=== PATIENT | female | born 1940 | race Caucasian/White ===

== ENCOUNTER 2018-06-18 04:54 | Inpatient (IN) | payer MEDICARE | END 2018-06-20 17:32 | disposition home or self-care (01) | LOC: ER 04:54 → ED HOLD 07:32 → SUR 3N 13:27 | DX: J18.1 Lobar pneumonia, unspecified organism (principal); D68.61 Antiphospholipid syndrome; I11.0 Hypertensive heart disease with heart failure; I50.9 Heart failure, unspecified; D63.8 Anemia in other chronic diseases classified elsewhere ==

== ENCOUNTER 2019-02-07 09:56 | Inpatient (IN) | payer MEDICARE ==
[~2019-02-07] VITALS: Ht 157.5 cm; Wt 85.0 kg
[~2019-02-07 09:56] MED LIST: ACYC-202 PO; ALBU8.5H8 INH; BENZ-16 PO; CARV3.12 PO; COU5T PO; FURO-150 PO; IRBE150T51 PO; LACT1CAP26 PO; LEVO500T89 PO; OMEP20CA11 PO
[2019-02-07 11:18] LABS: BASOPHILS % (AUTO) 0.7 % (0-1); EOSINOPHILS % (AUTO) 0.7 % (0-6); HEMATOCRIT 27.1 % (35.0-45.0); HEMOGLOBIN 8.7 g/dl (12.0-16.0); LYMPHOCYTES # (AUTO) 0.6 X10'3 (1.1-4.8); LYMPHOCYTES % (AUTO) 11.2 % (21-51); MEAN CORPUSCULAR HEMOGLOBIN 24.8 PG (27.0-31.0); MEAN CORPUSCULAR HGB CONC 32.1 g/dL (33.0-36.5); MEAN CORPUSCULAR VOLUME 77.1 FL (78-98); MEAN PLATELET VOLUME 7.1 FL (7.4-10.4); MONOCYTES # (AUTO) 0.3 X10'3 (0-0.9); MONOCYTES % (AUTO) 6.1 % (2-12); NEUTROPHILS # (AUTO) 4.7 X10'3 (1.8-7.7); NEUTROPHILS % (AUTO) 81.3 % (42-75); PLATELET COUNT 190 X10'3 (140-440); RED BLOOD COUNT 3.52 X10'6 (4.20-5.60); RED CELL DISTRIBUTION WIDTH 20.2 % (11.5-14.5); WHITE BLOOD COUNT 5.7 X10'3 (4.5-11.0)
[2019-02-07 11:30] LABS: PARTIAL THROMBOPLASTIN TIME 33 SECONDS (22-32)
[2019-02-07 11:31] LABS: ALANINE AMINOTRANSFERASE 15 U/L (12-78); ALBUMIN 2.9 G/DL (3.4-5.0); ALBUMIN/GLOBULIN RATIO 0.7 (1.1-1.5); ALKALINE PHOSPHATASE 81 IU/L (46-116); ANION GAP 5 (8-16); ASPARTATE AMINO TRANSFERASE 22 U/L (10-37); BILIRUBIN,TOTAL 0.5 MG/DL (0.1-1.0); BLOOD UREA NITROGEN 13 MG/DL (7-18); BUN/CREATININE RATIO 13.4 (6.6-38.0); CHLORIDE 101 MMOL/L (99-107); CREATININE 0.97 MG/DL (0.40-0.90); GLUCOSE 104 MG/DL (70-104); POTASSIUM 3.8 MMOL/L (3.5-5.1); SODIUM 136 MMOL/L (135-145); TOTAL PROTEIN 7.2 G/DL (6.4-8.2); eGFR 55 ML/MIN
[2019-02-07 11:35] LABS: ANISOCYTOSIS 3+; ELLIPTOCYTES FEW; MICROCYTOSIS 1+; PLATELET ESTIMATE NORMAL; SCHISTOCYTES FEW; TEAR DROP CELLS FEW
[2019-02-07 11:35] LABS: ABG BASE EXCESS 3.6 mmol/L (-2.0-3.0); ABG HCO3 27.9 mmol/L (22.0-26.0); ABG OXYGEN SATURATION 85.3 % (95-98); ABG PCO2 (T) 41.2 mmHg (35.0-45.0); ABG PH (T) 7.449 (7.350-7.450); ABG PO2 (T) 53.5 mmHg (83-108); ALLEN'S TEST Positive; FCOHb 0.5 % (0.5-1.5); FMetHb 0.1 % (0.3-1.12); FO2Hb 84.8 % (94-100); RESPIRATORY RATE (OBSERVED) 20 b/min; TOTAL HEMOGLOBIN 9.7 G/dl (12.0-16.0)
--- NOTE | 2019-02-07 12:36 | NUR ---
pt has no c/o pain at this time. resting quietly. no sob, but does admit does have sob when ambulating
[2019-02-07] MEDS ORDERED: potassium Cl 20 mEq SR tablet PO PRN ×2 (14:05)
[2019-02-07] MEDS ORDERED: mag hydrox/Alum hydrox/simeth 30ml oral suspension PO PRN (14:05)
[2019-02-07] MEDS ORDERED: docusate sod 100mg capsule PO PRN (14:05)
[2019-02-07] MEDS ORDERED: HYDROcodone/acetaminophen 5mg/325mg tablet PO PRN (14:05)
[2019-02-07] MEDS ORDERED: magnesium Cl slow-release 64mg tablet PO PRN (14:05)
[2019-02-07] MEDS ORDERED: magnesium 4gm in 100ml NS 100 ML IV PRN (14:05)
[2019-02-07] MEDS ORDERED: potassium CL 10mEq/100ml bag 100 ML IV PRN ×2 (14:05)
[2019-02-07] MEDS ORDERED: acetaminophen 325mg tablet PO PRN (14:05)
[2019-02-07] MEDS ORDERED: magnesium 2GM in 50ml NS 50 ML IV PRN (14:05)
[2019-02-07] MEDS ORDERED: ondansetron/PF 4mg/2ml inj IV PRN (14:05)
[2019-02-07] MEDS ORDERED: HYDROcodone/acetaminophen 10/325mg tab PO PRN (14:05)
[2019-02-07] MEDS ORDERED: furosemide 20 MG/2 ML vial IV SCH (14:15)
--- NOTE | 2019-02-07 14:15 | NUR ---
pt up to bedside commode with increase sob.
[2019-02-07] MEDS ORDERED: WARF-55 PO (14:53)
[2019-02-07] MEDS ORDERED: OLME20TA14 PO (14:53)
[2019-02-07] MEDS ORDERED: CITA10TA9 PO (14:53)
[2019-02-07] MEDS ORDERED: ACYC400T PO (14:53)
[2019-02-07] MEDS ORDERED: BUME1TAB8 PO (14:53)
[2019-02-07] MEDS ORDERED: AMLO5TAB16 PO (14:53)
[2019-02-07] MEDS ORDERED: iohexol 350MG/ML 100ml bottle IV ONE (15:47)
--- NOTE | 2019-02-07 16:11 | NUR ---
PT BACK FROM CT SCAN IN STABLE CONDITION
[2019-02-07] MEDS: methylPREDNISolone sod succ/PF 40mg inj. IV SCH (16:44)
--- NOTE | 2019-02-07 17:14 | NUR ---
[facility] [phone]
[2019-02-07 17:38] VITALS: BP 156/75
[2019-02-07] MEDS: montelukast 10mg tablet PO SCH (18:46)
--- NOTE | 2019-02-07 18:53 | NUR ---
Problems reprioritized. Patient report given, questions answered & plan of care reviewed with Rosaline MCCAIN.
--- NOTE | 2019-02-07 19:20 | NUR ---
Doctor Misa up to see patient to discuss the echo findings. requesting records from Dr. Paniagua @[facility] for Dr. Ashton's request. Left note for medical unit secretary to het reports in the morning. Dr. Quintero to consult patient tomorrow.
[2019-02-07 20:00] VITALS: BP 146/68
[2019-02-07] MEDS ORDERED: doxycycline inj 100 MG in normal saline 100ml IV soln 100 ML IV SCH (20:00)
[2019-02-07] MEDS ORDERED: warfarin 5mg tablet PO ONE (21:00)
[2019-02-08] VITALS: BP 132/60
[2019-02-08] MEDS: methylPREDNISolone sod succ/PF 40mg inj. IV SCH (00:23)
[2019-02-08 05:11] LABS: BASOPHILS % (AUTO) 0 % (0-1); EOSINOPHILS % (AUTO) 0 % (0-6); HEMATOCRIT 27.2 % (35.0-45.0); HEMOGLOBIN 8.7 g/dl (12.0-16.0); LYMPHOCYTES # (AUTO) 0.4 X10'3 (1.1-4.8); LYMPHOCYTES % (AUTO) 7.6 % (21-51); MEAN CORPUSCULAR HEMOGLOBIN 24.8 PG (27.0-31.0); MEAN CORPUSCULAR HGB CONC 32.1 g/dL (33.0-36.5); MEAN CORPUSCULAR VOLUME 77.4 FL (78-98); MEAN PLATELET VOLUME 7.5 FL (7.4-10.4); MONOCYTES % (AUTO) 0.8 % (2-12); NEUTROPHILS # (AUTO) 4.8 X10'3 (1.8-7.7); NEUTROPHILS % (AUTO) 91.6 % (42-75); PLATELET COUNT 201 X10'3 (140-440); RED BLOOD COUNT 3.51 X10'6 (4.20-5.60); RED CELL DISTRIBUTION WIDTH 20.4 % (11.5-14.5); WHITE BLOOD COUNT 5.2 X10'3 (4.5-11.0)
[2019-02-08 05:27] LABS: ALANINE AMINOTRANSFERASE 12 U/L (12-78); ALBUMIN/GLOBULIN RATIO 0.7 (1.1-1.5); ALKALINE PHOSPHATASE 86 IU/L (46-116); ANION GAP 8 (8-16); ASPARTATE AMINO TRANSFERASE 16 U/L (10-37); BILIRUBIN,TOTAL 0.7 MG/DL (0.1-1.0); BLOOD UREA NITROGEN 14 MG/DL (7-18); BUN/CREATININE RATIO 16.7 (6.6-38.0); CALCIUM 9.1 MG/DL (8.5-10.1); CHLORIDE 101 MMOL/L (99-107); CHOL/HDL RATIO 2.8 (0.00-4.99); CHOLESTEROL 192 MG/DL (0-200); CREATININE 0.84 MG/DL (0.40-0.90); GLUCOSE 133 MG/DL (70-104); HDL CHOLESTEROL 69 MG/DL (35-60); LDL CHOLESTEROL 121 MG/DL (50-100); MAGNESIUM 1.9 MG/DL (1.5-2.4); POTASSIUM 4.1 MMOL/L (3.5-5.1); SODIUM 137 MMOL/L (135-145); TOTAL CARBON DIOXIDE 28.5 MMOL/L (24-32); TOTAL PROTEIN 7.4 G/DL (6.4-8.2); TRIGLYCERIDES 39 MG/DL (20-135); eGFR 65 ML/MIN
--- NOTE | 2019-02-08 06:46 | NUR ---
Patient in room [facility] 345. I have received report from KALYN Waggoner and had the opportunity to ask questions and assume patient care.
--- NOTE | 2019-02-08 06:55 | NUR ---
Patient in room [facility] 345. I have received report from KALYN Waggoner and had the opportunity to ask questions and assume patient care.
[2019-02-08 07:00] VITALS: BP 131/61
[2019-02-08 07:49] LABS: ANISOCYTOSIS 3+; HYPOCHROMASIA 1+; MICROCYTOSIS 1+; PLATELET ESTIMATE NORMAL
[2019-02-08] MEDS: K and/or MAG REPLACEMENT MC SCH (08:00)
[2019-02-08] MEDS: montelukast 10mg tablet PO SCH (08:10)
[2019-02-08 11:00] VITALS: BP 144/54
[2019-02-08] MEDS ORDERED: phytonadione inj. 5 MG in normal saline 100ml IV soln 99.5 ML IV STA (12:03)
--- NOTE | 2019-02-08 17:39 | NUR ---
Student documentation: I have reviewed and agree with all interventions, assessments performed and documented by Angélica, student RN.
--- NOTE | 2019-02-08 18:00 | NUR ---
Patient in room YMN[facility] 345. I have received report from Char MCCAIN and had the opportunity to ask questions and assume patient care.
--- NOTE | 2019-02-08 18:42 | NUR ---
Problems reprioritized. Patient report given, questions answered & plan of care reviewed with KALYN Shaikh.
[2019-02-08 20:00] VITALS: BP 144/66
[2019-02-08] MEDS ORDERED: warfarin 5mg tablet PO ONE (21:00)
[2019-02-09] VITALS (9 sets, daily range): BP systolic 123–156; BP diastolic 63–91
[2019-02-09 05:00] LABS: BASOPHILS % (AUTO) 0.2 % (0-1); EOSINOPHILS % (AUTO) 0.4 % (0-6); HEMATOCRIT 26.2 % (35.0-45.0); HEMOGLOBIN 8.4 g/dl (12.0-16.0); LYMPHOCYTES % (AUTO) 8.7 % (21-51); MEAN CORPUSCULAR HEMOGLOBIN 24.8 PG (27.0-31.0); MEAN CORPUSCULAR VOLUME 77.4 FL (78-98); MEAN PLATELET VOLUME 7.4 FL (7.4-10.4); MONOCYTES # (AUTO) 0.8 X10'3 (0-0.9); MONOCYTES % (AUTO) 6.8 % (2-12); NEUTROPHILS # (AUTO) 9.8 X10'3 (1.8-7.7); NEUTROPHILS % (AUTO) 83.9 % (42-75); PLATELET COUNT 211 X10'3 (140-440); RED BLOOD COUNT 3.38 X10'6 (4.20-5.60); WHITE BLOOD COUNT 11.7 X10'3 (4.5-11.0)
[2019-02-09 05:14] LABS: ALANINE AMINOTRANSFERASE 13 U/L (12-78); ALBUMIN 2.8 G/DL (3.4-5.0); ALBUMIN/GLOBULIN RATIO 0.7 (1.1-1.5); ALKALINE PHOSPHATASE 77 IU/L (46-116); ANION GAP 7 (8-16); ASPARTATE AMINO TRANSFERASE 18 U/L (10-37); BILIRUBIN,TOTAL 0.8 MG/DL (0.1-1.0); BLOOD UREA NITROGEN 18 MG/DL (7-18); BUN/CREATININE RATIO 18.9 (6.6-38.0); CALCIUM 9.2 MG/DL (8.5-10.1); CHLORIDE 99 MMOL/L (99-107); CREATININE 0.95 MG/DL (0.40-0.90); GLUCOSE 99 MG/DL (70-104); POTASSIUM 3.8 MMOL/L (3.5-5.1); SODIUM 136 MMOL/L (135-145); TOTAL CARBON DIOXIDE 29.7 MMOL/L (24-32); TOTAL PROTEIN 6.9 G/DL (6.4-8.2); eGFR 57 ML/MIN
--- NOTE | 2019-02-09 06:33 | NUR ---
Problems reprioritized. Patient report given, questions answered & plan of care reviewed with Kenzie MCCAIN.
[2019-02-09 06:40] LABS: ANISOCYTOSIS 3+; ELLIPTOCYTES FEW; HYPOCHROMASIA 1+; MICROCYTOSIS 1+; PLATELET ESTIMATE NORMAL; POLYCHROMASIA FEW; SCHISTOCYTES FEW; STOMATOCYTES FEW; TEAR DROP CELLS FEW
--- NOTE | 2019-02-09 06:42 | NUR ---
Patient in room [facility] 345. I have received report from Neel MCCAIN and had the opportunity to ask questions and assume patient care.
[2019-02-09] MEDS ORDERED: aminocaproic acid 250 MG/1 ML inj. ONE (08:00)
[2019-02-09] MEDS ORDERED: albumin (human) 25% 100 ML IV solution IV ONE (08:00)
[2019-02-09] MEDS ORDERED: potassium Cl 2 mEq/ml inj IV ONE (08:00)
[2019-02-09] MEDS: K and/or MAG REPLACEMENT MC SCH (08:00)
[2019-02-09] MEDS ORDERED: LIDOcaine 2% (20 mg/ml) 5ml cardiac syringe ONE (08:00)
[2019-02-09] MEDS ORDERED: phenylephrine 10mg/ml inj. ONE (08:00)
[2019-02-09] MEDS ORDERED: heparin 10,000 units/1 ML INJ ONE (08:00)
[2019-02-09] MEDS ORDERED: magnesium sulf 1 GM/2 ML ONE (08:00)
[2019-02-09] MEDS ORDERED: sodium bicarbonate (8.4%) 1 mEq/ml syringe ONE (08:00)
[2019-02-09] MEDS ORDERED: methylPREDNISolone sod. succ. 500mg inj ONE (08:00)
[2019-02-09] MEDS: montelukast 10mg tablet PO SCH (09:22)
[2019-02-09] MEDS: CefTRIAXone/D5W-Rocephin 1gm 50 ML IV SCH (12:02)
[2019-02-09] MEDS ORDERED: acetaminophen 325mg tablet PO ONE (15:50)
[2019-02-09] MEDS ORDERED: heparin 1,000unit/ml 10ml vial 10 ML ONE (16:02)
[2019-02-09] MEDS ORDERED: midazolam 2 mg/2 ml injection ONE (16:02)
[2019-02-09] MEDS ORDERED: nitroGLYCERIN-Tridil 50MG/D5W 250 ML IV ONE (16:02)
[2019-02-09] MEDS ORDERED: verapamil 2.5 mg/ml inj IV ONE (16:02)
[2019-02-09] MEDS ORDERED: fentaNYL/PF 50MCG/1 ML 2ML syringe ONE (16:02)
[2019-02-09] MEDS ORDERED: iohexol 350 MG/ML 50ML vial IV ONE (16:02)
[2019-02-09] MEDS ORDERED: LIDOcaine 1% (10mg/ml)w/preservative injection 20ml MDV ONE (16:02)
[2019-02-09] MEDS ORDERED: iohexol 350MG/ML 100ml bottle IV ONE (16:03)
[2019-02-09] MEDS ORDERED: furosemide 40mg/4ml inj IV ONE ×2 (16:05→16:10)
[2019-02-09] MEDS ORDERED: potassium Cl 20 mEq SR tablet PO STA (16:05)
--- NOTE | 2019-02-09 18:05 | NUR ---
Patient in room [facility] 345. I have received report from Kenzie MCCAIN and had the opportunity to ask questions and assume patient care.
[2019-02-09] MEDS ORDERED: enoxaparin 100mg/ml syringe SUBCUT ONE (19:50)
[2019-02-09] MEDS: furosemide 40mg/4ml inj IV SCH (20:20)
[2019-02-09] MEDS: lactobacillus rhamnosus 10,000 MMU CELLS/CAPSULE PO SCH (20:20)
[2019-02-10] VITALS (9 sets, daily range): BP systolic 121–150; BP diastolic 64–82
[2019-02-10 06:16] LABS: ALANINE AMINOTRANSFERASE 14 U/L (12-78); ALBUMIN 2.8 G/DL (3.4-5.0); ALBUMIN/GLOBULIN RATIO 0.7 (1.1-1.5); ALKALINE PHOSPHATASE 83 IU/L (46-116); ANION GAP 7 (8-16); ASPARTATE AMINO TRANSFERASE 18 U/L (10-37); BILIRUBIN,TOTAL 1.3 MG/DL (0.1-1.0); BLOOD UREA NITROGEN 18 MG/DL (7-18); BUN/CREATININE RATIO 20.5 (6.6-38.0); CALCIUM 9.1 MG/DL (8.5-10.1); CHLORIDE 98 MMOL/L (99-107); CREATININE 0.88 MG/DL (0.40-0.90); GLUCOSE 87 MG/DL (70-104); MAGNESIUM 1.9 MG/DL (1.5-2.4); POTASSIUM 3.6 MMOL/L (3.5-5.1); SODIUM 138 MMOL/L (135-145); TOTAL CARBON DIOXIDE 33.4 MMOL/L (24-32); TOTAL PROTEIN 7.1 G/DL (6.4-8.2); eGFR 62 ML/MIN
--- NOTE | 2019-02-10 06:20 | NUR ---
Problems reprioritized. Patient report given, questions answered & plan of care reviewed with Kenzie MCCAIN.
--- NOTE | 2019-02-10 06:45 | NUR ---
Patient in room [facility] 345. I have received report from Neel MCCAIN and had the opportunity to ask questions and assume patient care.
[2019-02-10] MEDS: CefTRIAXone/D5W-Rocephin 1gm 50 ML IV SCH (07:56)
[2019-02-10] MEDS: lactobacillus rhamnosus 10,000 MMU CELLS/CAPSULE PO SCH ×2 (07:56→19:39)
[2019-02-10] MEDS: potassium Cl 20 mEq SR tablet PO SCH ×2 (07:56→19:39)
[2019-02-10] MEDS: montelukast 10mg tablet PO SCH (07:56)
[2019-02-10] MEDS: K and/or MAG REPLACEMENT MC SCH (08:00)
[2019-02-10] MEDS: furosemide 40mg/4ml inj IV SCH ×2 (08:11→19:39)
[2019-02-10 09:16] LABS: BASOPHILS % (AUTO) 0.4 % (0-1); EOSINOPHILS # (AUTO) 0.1 X10'3 (0-0.9); EOSINOPHILS % (AUTO) 1.4 % (0-6); HEMATOCRIT 30.3 % (35.0-45.0); HEMOGLOBIN 9.8 g/dl (12.0-16.0); LYMPHOCYTES % (AUTO) 15.3 % (21-51); MEAN CORPUSCULAR HEMOGLOBIN 25.5 PG (27.0-31.0); MEAN CORPUSCULAR HGB CONC 32.2 g/dL (33.0-36.5); MONOCYTES # (AUTO) 0.4 X10'3 (0-0.9); MONOCYTES % (AUTO) 6.3 % (2-12); NEUTROPHILS # (AUTO) 5.1 X10'3 (1.8-7.7); NEUTROPHILS % (AUTO) 76.6 % (42-75); PLATELET COUNT 154 X10'3 (140-440); RED BLOOD COUNT 3.84 X10'6 (4.20-5.60); RED CELL DISTRIBUTION WIDTH 19.9 % (11.5-14.5); WHITE BLOOD COUNT 6.6 X10'3 (4.5-11.0)
[2019-02-10] MEDS ORDERED: LIDOcaine 1% (10mg/ml)w/preservative injection 20ml MDV ONE (09:50)
[2019-02-10] MEDS ORDERED: verapamil 2.5 mg/ml inj IV ONE (09:50)
[2019-02-10] MEDS ORDERED: fentaNYL/PF 50MCG/1 ML 2ML syringe ONE (09:50)
[2019-02-10] MEDS ORDERED: nitroGLYCERIN-Tridil 50MG/D5W 250 ML IV ONE (09:50)
[2019-02-10] MEDS ORDERED: iohexol 350MG/ML 100ml bottle IV ONE (09:50)
[2019-02-10] MEDS ORDERED: midazolam 2 mg/2 ml injection ONE ×2 (09:50→10:21)
[2019-02-10] MEDS ORDERED: iohexol 350 MG/ML 50ML vial IV ONE (09:50)
[2019-02-10] MEDS ORDERED: heparin 1,000unit/ml 10ml vial 10 ML ONE (09:50)
--- NOTE | 2019-02-10 10:00 | NUR ---
Pt going to flower shop laborer/designer to have a SABAS & Angio with Dr. Ashton. Pt NPO since Midnight.
[2019-02-10 10:28] LABS: ANISOCYTOSIS 2+; HYPOCHROMASIA 1+; MICROCYTOSIS 1+; PLATELET ESTIMATE NORMAL; POLYCHROMASIA FEW
[2019-02-10 10:29] LABS: ELLIPTOCYTES FEW; TEAR DROP CELLS FEW
--- NOTE | 2019-02-10 12:00 | NUR ---
Pt back from chemical laboratory scientist, R & L HC & SABAS. Monitoring Angio sites & Vitals. Dr Bynum notified.
--- NOTE | 2019-02-10 12:21 | NUR ---
received repport from Oscar in cath lab radiological technologist, pt is coming back to room. L & R cath & PEE no stents.
[2019-02-10 14:26] LABS: ISTAT HGB ART 10.5 g/dl (12.0-16.0); ISTAT Hct ART 31 %PCV (35-48); ISTAT O2 SATURATION ARTERIAL 95 % (95-98); ISTAT SOURCE ART
--- NOTE | 2019-02-10 14:35 | NUR ---
Pt on her back for 4 hrs, no bleeding, R, L & Addendum: 02/10/19 at 1848 by Kenzie Montgomery RN R & L AC dry and intact, groin dry and intact. Right radial pressure cuff released in increments of 2mm per 15 min. No bleeding, bruising or pain noted. Vitals good, pt comfortable.
--- NOTE | 2019-02-10 18:05 | NUR ---
Patient in room [facility] 345. I have received report from Kenzie MCCAIN and had the opportunity to ask questions and assume patient care.
--- NOTE | 2019-02-10 18:48 | NUR ---
Problems reprioritized. Patient report given, questions answered & plan of care reviewed with Neel MCCAIN.
[2019-02-11] VITALS (7 sets, daily range): BP systolic 93–151; BP diastolic 48–75
--- NOTE | 2019-02-11 06:21 | NUR ---
Problems reprioritized. Patient report given, questions answered & plan of care reviewed with Kenzie MCCAIN.
[2019-02-11 06:37] LABS: BASOPHILS % (AUTO) 0.5 % (0-1); EOSINOPHILS # (AUTO) 0.2 X10'3 (0-0.9); EOSINOPHILS % (AUTO) 2.3 % (0-6); HEMATOCRIT 31.4 % (35.0-45.0); HEMOGLOBIN 10.1 g/dl (12.0-16.0); LYMPHOCYTES # (AUTO) 0.8 X10'3 (1.1-4.8); MEAN CORPUSCULAR HEMOGLOBIN 25.5 PG (27.0-31.0); MEAN CORPUSCULAR HGB CONC 32.3 g/dL (33.0-36.5); MEAN PLATELET VOLUME 7.7 FL (7.4-10.4); MONOCYTES # (AUTO) 0.5 X10'3 (0-0.9); MONOCYTES % (AUTO) 6.8 % (2-12); NEUTROPHILS # (AUTO) 5.5 X10'3 (1.8-7.7); NEUTROPHILS % (AUTO) 79.4 % (42-75); PLATELET COUNT 182 X10'3 (140-440); RED BLOOD COUNT 3.97 X10'6 (4.20-5.60); RED CELL DISTRIBUTION WIDTH 19.6 % (11.5-14.5)
--- NOTE | 2019-02-11 06:40 | NUR ---
Patient in room [facility] 345. I have received report from Neel MCCAIN and had the opportunity to ask questions and assume patient care.
[2019-02-11 07:01] LABS: ALANINE AMINOTRANSFERASE 12 U/L (12-78); ALBUMIN 2.8 G/DL (3.4-5.0); ALBUMIN/GLOBULIN RATIO 0.6 (1.1-1.5); ALKALINE PHOSPHATASE 89 IU/L (46-116); ANION GAP 8 (8-16); ASPARTATE AMINO TRANSFERASE 14 U/L (10-37); BILIRUBIN,TOTAL 0.9 MG/DL (0.1-1.0); BLOOD UREA NITROGEN 18 MG/DL (7-18); CALCIUM 9.7 MG/DL (8.5-10.1); CHLORIDE 98 MMOL/L (99-107); GLUCOSE 89 MG/DL (70-104); MAGNESIUM 2.1 MG/DL (1.5-2.4); POTASSIUM 3.9 MMOL/L (3.5-5.1); SODIUM 137 MMOL/L (135-145); TOTAL CARBON DIOXIDE 30.7 MMOL/L (24-32); TOTAL PROTEIN 7.5 G/DL (6.4-8.2); eGFR 60 ML/MIN
[2019-02-11] MEDS ORDERED: enoxaparin 60mg/0.6ml syringe SUBCUT SCH ×2 (08:00→20:00)
[2019-02-11] MEDS: K and/or MAG REPLACEMENT MC SCH (08:00)
[2019-02-11] MEDS: CefTRIAXone/D5W-Rocephin 1gm 50 ML IV SCH (08:10)
[2019-02-11] MEDS: lactobacillus rhamnosus 10,000 MMU CELLS/CAPSULE PO SCH ×2 (08:11→21:27)
[2019-02-11] MEDS: potassium Cl 20 mEq SR tablet PO SCH ×2 (08:11→21:26)
[2019-02-11] MEDS: furosemide 40mg/4ml inj IV SCH ×2 (08:11→21:26)
[2019-02-11] MEDS: montelukast 10mg tablet PO SCH (08:11)
[2019-02-11 09:38] LABS: ANISOCYTOSIS 2+; PLATELET ESTIMATE NORMAL; TOTAL CELLS COUNTED 100
[2019-02-11 09:39] LABS: ELLIPTOCYTES FEW; HYPOCHROMASIA 1+; MICROCYTOSIS 1+; POLYCHROMASIA FEW; TEAR DROP CELLS FEW
[2019-02-11] MEDS ORDERED: magnesium 4gm in 100ml NS 100 ML IV PRN (12:20)
[2019-02-11] MEDS ORDERED: potassium Cl 20 mEq SR tablet PO PRN (12:20)
[2019-02-11] MEDS ORDERED: MALTODEXTRIN/FRUCTOSE 0.68 KCAL/ML LIQUID 296ML BOTTLE PO ONE (12:20)
[2019-02-11] MEDS ORDERED: dextrose 50%-water 50ml dispensing syringe IV PRN (12:20)
[2019-02-11] MEDS ORDERED: potassium Cl 20mEq/100mL bag 100 ML IV PRN (12:20)
[2019-02-11] MEDS ORDERED: magnesium 2GM in 50ml NS 50 ML IV PRN (12:20)
[2019-02-11] MEDS ORDERED: MESSAGE TO NURSING PO ONE ×2 (12:20→17:30)
[2019-02-11] MEDS: CITALOpram 10mg tablet PO SCH (12:58)
[2019-02-11] MEDS: carVEDilol 3.125mg tablet PO SCH ×2 (12:59→21:27)
--- NOTE | 2019-02-11 13:10 | NUR ---
Problems reprioritized. Patient report given, questions answered & plan of care reviewed with Thais MCCAIN in [facility] Unit.
--- NOTE | 2019-02-11 13:12 | NUR ---
Called Dr Maddox to informed him that pt and family had agreed on open heart surgery for tomorrow, he said he will arrange for all pre-op needs for pts.
--- NOTE | 2019-02-11 13:30 | NUR ---
PATIENT ARRIVED TO ACCE 316 ALERT, ORIENTED, CALM, PLEASANT AND COOPERATIVE WITH FAMILY AT BEDSIDE.
[2019-02-11] MEDS ORDERED: ringers solution, lacted 1,000 ML IV ONE (14:46)
--- NOTE | 2019-02-11 16:50 | NUR ---
KALYN LYONS, ATTEMPTED X3 TO OBTAIN A LEFT ARM IV ACCESS FOR PRE-OP USING THE ULTRASOUND MACHINE. HE WAS UNABLE TO GET AN IV. PATIENT HAS A 22G IN THE RIGHT WRIST. WILL LET SENIOR PREMIUM AUDITOR KNOW TO ENDORSE THIS INFO TO PRE-OP. PATIENT IS A DIFFICULT STICK.
[2019-02-11 17:21] LABS: ABG BASE EXCESS 4.9 mmol/L (-2.0-3.0); ABG HCO3 27.9 mmol/L (22.0-26.0); ABG OXYGEN SATURATION 93.9 % (95-98); ABG PCO2 (T) 35.5 mmHg (35.0-45.0); ABG PH (T) 7.514 (7.350-7.450); ABG PO2 (T) 68.6 mmHg (83-108); ALLEN'S TEST Positive; FMetHb 0.2 % (0.3-1.12); FO2Hb 93.7 % (94-100); TOTAL HEMOGLOBIN 10.9 G/dl (12.0-16.0)
--- NOTE | 2019-02-11 18:20 | NUR ---
Patient in room MED 316. I have received report from KALYN Gordon and had the opportunity to ask questions and assume patient care.
--- NOTE | 2019-02-11 18:29 | NUR ---
Problems reprioritized. Patient report given, questions answered & plan of care reviewed with KALYN Chauhan.
[2019-02-11] MEDS ORDERED: metoprolol tartrate 12.5mg (1/2 tablet) PO SCH (20:00)
[2019-02-11] MEDS: mupirocin 2% nasal ointment 1gm UD NS SCH (21:27)
[2019-02-12] VITALS (15 sets, daily range): BP systolic 104–155; BP diastolic 45–60
[2019-02-12] MEDS ORDERED: MESSAGE TO NURSING PO ONE ×3 (01:30→05:30)
[2019-02-12 04:54] LABS: BASOPHILS # (AUTO) 0.1 X10'3 (0-0.2); BASOPHILS % (AUTO) 0.7 % (0-1); EOSINOPHILS # (AUTO) 0.2 X10'3 (0-0.9); HEMOGLOBIN 10.2 g/dl (12.0-16.0); MEAN CORPUSCULAR HEMOGLOBIN 25.6 PG (27.0-31.0); MONOCYTES # (AUTO) 0.6 X10'3 (0-0.9); RED BLOOD COUNT 3.97 X10'6 (4.20-5.60); RED CELL DISTRIBUTION WIDTH 19.5 % (11.5-14.5)
[2019-02-12 04:56] LABS: EOSINOPHILS % (AUTO) 2.6 % (0-6); HEMATOCRIT 31.2 % (35.0-45.0); LYMPHOCYTES % (AUTO) 13.4 % (21-51); MEAN CORPUSCULAR HGB CONC 32.6 g/dL (33.0-36.5); MEAN CORPUSCULAR VOLUME 78.5 FL (78-98); MEAN PLATELET VOLUME 8.2 FL (7.4-10.4); MONOCYTES % (AUTO) 8.2 % (2-12); NEUTROPHILS # (AUTO) 5.6 X10'3 (1.8-7.7); NEUTROPHILS % (AUTO) 75.1 % (42-75); WHITE BLOOD COUNT 7.4 X10'3 (4.5-11.0)
[2019-02-12 05:07] LABS: ALANINE AMINOTRANSFERASE 9 U/L (12-78); ALBUMIN 2.7 G/DL (3.4-5.0); ALBUMIN/GLOBULIN RATIO 0.6 (1.1-1.5); ALKALINE PHOSPHATASE 83 IU/L (46-116); ANION GAP 7 (8-16); ASPARTATE AMINO TRANSFERASE 18 U/L (10-37); BILIRUBIN,TOTAL 0.5 MG/DL (0.1-1.0); BLOOD UREA NITROGEN 21 MG/DL (7-18); BUN/CREATININE RATIO 21.9 (6.6-38.0); CALCIUM 9.1 MG/DL (8.5-10.1); CHLORIDE 98 MMOL/L (99-107); CREATININE 0.96 MG/DL (0.40-0.90); GLUCOSE 110 MG/DL (70-104); MAGNESIUM 1.9 MG/DL (1.5-2.4); POTASSIUM 4.2 MMOL/L (3.5-5.1); SODIUM 132 MMOL/L (135-145); TOTAL CARBON DIOXIDE 26.9 MMOL/L (24-32); TOTAL PROTEIN 7.1 G/DL (6.4-8.2); eGFR 56 ML/MIN
[2019-02-12] MEDS ORDERED: ROPIVAcaine 0.5% (5mg/ml) 30ml vial ONE (05:11)
[2019-02-12] MEDS ORDERED: cefazolin/dext.iso 2gm/50ml 50 ML IV ONE (05:30)
[2019-02-12] MEDS ORDERED: gabapentin 400mg capsule PO ONE (05:30)
[2019-02-12] MEDS ORDERED: vancomycin/NS 1 GM ADD-VANTAGE 250 ML IV ONE (05:30)
[2019-02-12] MEDS ORDERED: insulin glargine (Lantus) pen - multi-dose SQ PRN (05:30)
[2019-02-12] MEDS ORDERED: MALTODEXTRIN/FRUCTOSE 0.68 KCAL/ML LIQUID 296ML BOTTLE PO ONE (05:30)
[2019-02-12] MEDS: mupirocin 2% nasal ointment 1gm UD NS SCH ×2 (05:40→20:57)
[2019-02-12] MEDS ORDERED: LORazepam 2 mg/ml vial IV ONE ×2 (06:00)
[2019-02-12] MEDS ORDERED: famotidine 20mg tablet PO ONE ×2 (06:00)
--- NOTE | 2019-02-12 06:15 | NUR ---
Patient in room MED 316. I have received report from KALYN Chauhan and had the opportunity to ask questions and assume patient care.
--- NOTE | 2019-02-12 06:25 | NUR ---
Problems reprioritized. Patient report given, questions answered & plan of care reviewed with KALYN Holbrook.
[2019-02-12] MEDS: carVEDilol 3.125mg tablet PO SCH (06:42)
--- NOTE | 2019-02-12 06:50 | NUR ---
Patient left the floor with the OR staff. Patient was alert and oriented and in stable condition.
[2019-02-12] MEDS ORDERED: MIDAZolam 5mg/5ml vial ONE (07:01)
[2019-02-12] MEDS ORDERED: SUFENTANIL CITRATE 50 MCG/ML 2ml ampule IV ONE (07:01)
[2019-02-12] MEDS ORDERED: etomidate 2mg/ml inj. ONE (07:30)
[2019-02-12] MEDS ORDERED: pancuronium br 1mg/ml inj IV ONE (07:30)
[2019-02-12 07:55] LABS: ABG BASE EXCESS -0.5 mmol/L (-2.0-3.0); ABG HCO3 24.1 mmol/L (22.0-26.0); ABG OXYGEN SATURATION 99.6 % (95-98); ABG PH 7.408 (7.350-7.450); ABG PO2 459.9 mmHg (60.0-100.0); CL (ABG) 93 mmol/L (99-107); FCOHb 0.5 % (0.5-1.5); FMetHb 0.6 % (0.3-1.12); FO2Hb 98.5 % (94-100); GLUCOSE (ABG) 152 mg/dl (70-104); IONIZED CA (ABG) 1.08 mmol/L (1.03-1.32); K (ABG) 3.8 mmol/L (3.3-5.1); NA (ABG) 126 mmol/L (135-145); TOTAL HEMOGLOBIN 9.7 G/dl (12.0-16.0)
[2019-02-12] MEDS ORDERED: pantoprazole 40mg Tablet.DR PO SCH (08:00)
[2019-02-12] MEDS ORDERED: mupirocin 2% nasal ointment 1gm UD NS SCH (08:00)
[2019-02-12 08:03] LABS: PLATELET COUNT 136 X10'3 (140-440)
[2019-02-12 08:04] LABS: ANISOCYTOSIS 2+; MICROCYTOSIS 1+; PLATELET ESTIMATE NORMAL
[2019-02-12 08:10] LABS: ACT @ 1.70 U 254 SEC (193-297); ACT @ 2.84 U 350 SEC (260-420); BASELINE ACT 136 SEC (101-148); PATIENT WEIGHT 76.0k KG
[2019-02-12] MEDS ORDERED: dexamethasone sod phosphate 4mg/ml inj. ONE (08:32)
[2019-02-12 08:56] LABS: ABG BASE EXCESS VENOUS 2.7 mmol/L; ABG HCO3 VENOUS 26.9 mmol/L; ABG PCO2 VENOUS 40.1 mmHg; ABG PO2 VENOUS 250.4 mmHg; CL (ABG) 96 mmol/L (99-107); FCOHb VENOUS 0.9 %; FHHb VENOUS 0.2 %; FMetHb VENOUS 0.2 %; FO2Hb VENOUS 98.7 %; GLUCOSE (ABG) 111 mg/dl (70-104); K (ABG) 4.2 mmol/L (3.3-5.1); NA (ABG) 130 mmol/L (135-145); TOTAL HEMOGLOBIN 9.2 G/dl (12.0-16.0)
[2019-02-12 09:10] LABS: ABG BASE EXCESS 3.7 mmol/L (-2.0-3.0); ABG HCO3 26.9 mmol/L (22.0-26.0); ABG OXYGEN SATURATION 99.6 % (95-98); ABG PH 7.516 (7.350-7.450); ABG PO2 380.3 mmHg (60.0-100.0); CL (ABG) 91 mmol/L (99-107); FCOHb 1.1 % (0.5-1.5); FMetHb 0.3 % (0.3-1.12); FO2Hb 98.2 % (94-100); GLUCOSE (ABG) 89 mg/dl (70-104); IONIZED CA (ABG) 0.85 mmol/L (1.03-1.32); NA (ABG) 129 mmol/L (135-145)
[2019-02-12 09:25] LABS: ABG BASE EXCESS VENOUS 2.5 mmol/L; ABG HCO3 VENOUS 27.3 mmol/L; ABG PCO2 VENOUS 43.4 mmHg; ABG PO2 VENOUS 42.1 mmHg; CL (ABG) 95 mmol/L (99-107); FCOHb VENOUS 1.7 %; FHHb VENOUS 19.5 %; FMetHb VENOUS 0.3 %; FO2Hb VENOUS 78.5 %; GLUCOSE (ABG) 123 mg/dl (70-104); IONIZED CA (ABG) 0.97 mmol/L (1.03-1.32); K (ABG) 5.9 mmol/L (3.3-5.1); NA (ABG) 128 mmol/L (135-145); TOTAL HEMOGLOBIN 7.9 G/dl (12.0-16.0)
[2019-02-12 09:41] LABS: ABG BASE EXCESS 1.5 mmol/L (-2.0-3.0); ABG HCO3 28.1 mmol/L (22.0-26.0); ABG OXYGEN SATURATION 99.7 % (95-98); ABG PCO2 56.2 mmHg (35.0-45.0); ABG PH 7.317 (7.350-7.450); ABG PO2 404.2 mmHg (60.0-100.0); CL (ABG) 96 mmol/L (99-107); FCOHb 0.9 % (0.5-1.5); FMetHb 0.2 % (0.3-1.12); FO2Hb 98.6 % (94-100); GLUCOSE (ABG) 114 mg/dl (70-104); IONIZED CA (ABG) 1.06 mmol/L (1.03-1.32); NA (ABG) 128 mmol/L (135-145); TOTAL HEMOGLOBIN 8.4 G/dl (12.0-16.0)
[2019-02-12 10:06] LABS: ABG BASE EXCESS 3.2 mmol/L (-2.0-3.0); ABG HCO3 27.9 mmol/L (22.0-26.0); ABG OXYGEN SATURATION 99.3 % (95-98); ABG PCO2 43.2 mmHg (35.0-45.0); ABG PH 7.428 (7.350-7.450); ABG PO2 340.3 mmHg (60.0-100.0); CL (ABG) 96 mmol/L (99-107); FCOHb 0.3 % (0.5-1.5); FMetHb 0.7 % (0.3-1.12); FO2Hb 98.3 % (94-100); GLUCOSE (ABG) 139 mg/dl (70-104); IONIZED CA (ABG) 1.03 mmol/L (1.03-1.32); K (ABG) 5.7 mmol/L (3.3-5.1); NA (ABG) 129 mmol/L (135-145); TOTAL HEMOGLOBIN 9.2 G/dl (12.0-16.0)
[2019-02-12 10:36] LABS: ABG BASE EXCESS 2.5 mmol/L (-2.0-3.0); ABG HCO3 26.7 mmol/L (22.0-26.0); ABG OXYGEN SATURATION 99.4 % (95-98); ABG PCO2 39.6 mmHg (35.0-45.0); ABG PH 7.447 (7.350-7.450); ABG PO2 313.6 mmHg (60.0-100.0); CL (ABG) 96 mmol/L (99-107); FCOHb 0.8 % (0.5-1.5); FMetHb 0.8 % (0.3-1.12); FO2Hb 97.8 % (94-100); GLUCOSE (ABG) 159 mg/dl (70-104); IONIZED CA (ABG) 1.02 mmol/L (1.03-1.32); K (ABG) 5.5 mmol/L (3.3-5.1); NA (ABG) 129 mmol/L (135-145); TOTAL HEMOGLOBIN 9.2 G/dl (12.0-16.0)
[2019-02-12 11:01] LABS: ABG BASE EXCESS 4.5 mmol/L (-2.0-3.0); ABG HCO3 28.5 mmol/L (22.0-26.0); ABG OXYGEN SATURATION 99.1 % (95-98); ABG PCO2 40.1 mmHg (35.0-45.0); ABG PO2 269.7 mmHg (60.0-100.0); CL (ABG) 95 mmol/L (99-107); FCOHb 0.8 % (0.5-1.5); FMetHb 0.9 % (0.3-1.12); FO2Hb 97.4 % (94-100); GLUCOSE (ABG) 162 mg/dl (70-104); IONIZED CA (ABG) 1.12 mmol/L (1.03-1.32); K (ABG) 5.5 mmol/L (3.3-5.1); NA (ABG) 128 mmol/L (135-145); TOTAL HEMOGLOBIN 8.2 G/dl (12.0-16.0)
[2019-02-12 11:31] LABS: ABG BASE EXCESS VENOUS 2.8 mmol/L; ABG PO2 VENOUS 39.7 mmHg; CL (ABG) 97 mmol/L (99-107); FCOHb VENOUS 1.3 %; FHHb VENOUS 26.8 %; FMetHb VENOUS 0.9 %; GLUCOSE (ABG) 166 mg/dl (70-104); IONIZED CA (ABG) 1.18 mmol/L (1.03-1.32); K (ABG) 5.1 mmol/L (3.3-5.1); NA (ABG) 130 mmol/L (135-145); TOTAL HEMOGLOBIN 8.4 G/dl (12.0-16.0)
[2019-02-12] MEDS ORDERED: sodium chloride 0.45% 1,000 ML IV SCH (12:14)
[2019-02-12] MEDS ORDERED: niCARDipine-NS 40mg/200ml IVPB 200 ML IV PRN (12:14)
[2019-02-12] MEDS ORDERED: DOPamine 400mg/D5W 250ml 250 ML IV PRN (12:14)
[2019-02-12] MEDS ORDERED: nitroGLYCERIN-Tridil 50MG/D5W 250 ML IV PRN (12:14)
[2019-02-12] MEDS ORDERED: magnesium 4gm in 100ml NS 100 ML IV PRN (12:15)
[2019-02-12] MEDS ORDERED: potassium Cl 20 mEq SR tablet PO PRN (12:15)
[2019-02-12] MEDS ORDERED: sodium phosphate inj. 15 MMOL in dextrose 5%-water 150 ML IV PRN (12:15)
[2019-02-12] MEDS ORDERED: ondansetron/PF 4mg/2ml inj IV PRN (12:15)
[2019-02-12] MEDS ORDERED: magnesium hydroxide 30ml (MOM) UD suspension PO PRN (12:15)
[2019-02-12] MEDS ORDERED: HYDROcodone/acetaminophen 10/325mg tab PO PRN ×2 (12:15)
[2019-02-12] MEDS ORDERED: acetaminophen 325mg tablet PO PRN (12:15)
[2019-02-12] MEDS ORDERED: morphine 4 MG/ML inj SYRINge IV PRN (12:15)
[2019-02-12] MEDS ORDERED: pantoprazole 40 MG vial IV ONE (12:15)
[2019-02-12] MEDS ORDERED: magnesium 2GM in 50ml NS 50 ML IV PRN (12:15)
[2019-02-12] MEDS ORDERED: albumin (Human) 5% 250ml 250 ML IV PRN (12:15)
[2019-02-12] MEDS ORDERED: insulin regular, human inj. 100 UNITS in normal saline 100ml IV soln 100 ML IV SCH ×2 (12:15)
[2019-02-12] MEDS ORDERED: dextrose 50%-water 50ml dispensing syringe IV PRN (12:15)
[2019-02-12] MEDS ORDERED: normal saline 250ml IV soln 250 ML IV PRN (12:15)
[2019-02-12] MEDS ORDERED: sodium phosphate inj. 30 MMOL in dextrose 5%-water 250 ML IV PRN (12:15)
[2019-02-12] MEDS ORDERED: metoclopramide 5 mg/ml inj IV PRN (12:15)
[2019-02-12] MEDS ORDERED: Neutra Phos packet PO PRN (12:15)
--- NOTE | 2019-02-12 12:22 | NUR ---
Initial: Pt admit w/ severe mitral valve stenosis s/p MVR advanced to lactose free/ NCS diet. PO 100% heart healthy dinner last night w/ low PO hx prior 25% avg meals though did fluctuate. Will need high protein ed once stable post-op. LBM 02/11. Will monitor for additional protein needs pending PO post-op. Rec: 1. advance diet per MD to regular/lactose free 2. monitor for ONS needs pending PO post-op 3. routine bowel care 4. MVI for wound healing per MD 5. wt per rx Addendum: 02/12/19 at [address] Amended: Links added.
--- NOTE | 2019-02-12 12:24 | NUR ---
Received to room , accompanied by MDs and surgical crew. Placed on ventilator, to cardiac cath technologist, arterial line and PA line pressure monitored. Chest tubes to suction at 20 cm. Cat cath to gravity drainage. Dressings are dry and intact. See assessment record. All vasoactive drugs are infusing via central line.
[2019-02-12 12:46] LABS: ABG BASE EXCESS -0.7 mmol/L (-2.0-3.0); ABG HCO3 24.3 mmol/L (22.0-26.0); ABG PH (T) 7.398 (7.350-7.450); ABG PO2 (T) 230.1 mmHg (83-108); FMetHb 0.2 % (0.3-1.12); FO2Hb 98.8 % (94-100); MINUTE VOLUME 6 L/min; PATIENT TEMPERATURE 36.4; PEEP 5 cm H2O; RESPIRATORY RATE 10 b/min; RESPIRATORY RATE (OBSERVED) 10 b/min; TIDAL VOLUME 600 mL; TOTAL HEMOGLOBIN 10.4 G/dl (12.0-16.0)
[2019-02-12 12:54] LABS: BASOPHILS % (AUTO) 0.1 % (0-1); EOSINOPHILS % (AUTO) 0.2 % (0-6); HEMATOCRIT 28.6 % (35.0-45.0); HEMOGLOBIN 9.3 g/dl (12.0-16.0); LYMPHOCYTES # (AUTO) 0.5 X10'3 (1.1-4.8); LYMPHOCYTES % (AUTO) 3.3 % (21-51); MEAN CORPUSCULAR HEMOGLOBIN 26.5 PG (27.0-31.0); MEAN CORPUSCULAR HGB CONC 32.5 g/dL (33.0-36.5); MEAN CORPUSCULAR VOLUME 81.5 FL (78-98); MEAN PLATELET VOLUME 6.9 FL (7.4-10.4); MONOCYTES # (AUTO) 0.5 X10'3 (0-0.9); MONOCYTES % (AUTO) 3.4 % (2-12); NEUTROPHILS # (AUTO) 13.2 X10'3 (1.8-7.7); PLATELET COUNT 138 X10'3 (140-440); RED BLOOD COUNT 3.51 X10'6 (4.20-5.60); RED CELL DISTRIBUTION WIDTH 18.4 % (11.5-14.5); WHITE BLOOD COUNT 14.2 X10'3 (4.5-11.0)
[2019-02-12] MEDS: insulin Lispro (HumaLOG) vial - multi-dose SQ SCH ×2 (13:00→18:30)
[2019-02-12 13:05] LABS: PARTIAL THROMBOPLASTIN TIME 40 SECONDS (22-32)
[2019-02-12 13:06] LABS: ALANINE AMINOTRANSFERASE 12 U/L (12-78); ALBUMIN 2.8 G/DL (3.4-5.0); ALBUMIN/GLOBULIN RATIO 1.1 (1.1-1.5); ALKALINE PHOSPHATASE 55 IU/L (46-116); ANION GAP 7 (8-16); ASPARTATE AMINO TRANSFERASE 53 U/L (10-37); BILIRUBIN,TOTAL 1.2 MG/DL (0.1-1.0); BLOOD UREA NITROGEN 18 MG/DL (7-18); BUN/CREATININE RATIO 20.9 (6.6-38.0); CALCIUM 8.1 MG/DL (8.5-10.1); CHLORIDE 106 MMOL/L (99-107); CREATININE 0.86 MG/DL (0.40-0.90); GLUCOSE 171 MG/DL (70-104); PHOSPHORUS 3.3 MG/DL (2.3-4.5); POTASSIUM 5.1 MMOL/L (3.5-5.1); SODIUM 139 MMOL/L (135-145); TOTAL CARBON DIOXIDE 26.5 MMOL/L (24-32); TOTAL PROTEIN 5.3 G/DL (6.4-8.2); eGFR 63 ML/MIN
[2019-02-12] MEDS: insulin regular, human 100 UNIT in normal saline 100ml IV soln 100 ML IV SCH ×2 (13:23)
[2019-02-12] MEDS: gabapentin 300mg capsule PO SCH ×2 (13:35→20:57)
[2019-02-12] MEDS: montelukast 10mg tablet PO SCH (13:36)
[2019-02-12] MEDS: CITALOpram 10mg tablet PO SCH (13:36)
[2019-02-12 16:06] LABS: PHOSPHORUS 4.3 MG/DL (2.3-4.5)
[2019-02-12] MEDS: ceFAZolin 1GM/D5W- ADD-VANTAGE 50 ML IV SCH (16:44)
[2019-02-12 16:51] LABS: ABG BASE EXCESS -1.5 mmol/L (-2.0-3.0); ABG OXYGEN SATURATION 96.1 % (95-98); ABG PCO2 (T) 42.6 mmHg (35.0-45.0); ABG PH (T) 7.366 (7.350-7.450); ABG PO2 (T) 88.4 mmHg (83-108); FCOHb 0.3 % (0.5-1.5); FMetHb 0.2 % (0.3-1.12); FO2Hb 95.6 % (94-100); MINUTE VOLUME 6 L/min; PATIENT TEMPERATURE 36.5; PEEP 5 cm H2O; RESPIRATORY RATE (OBSERVED) 13 b/min; TIDAL VOLUME 539 mL; TOTAL HEMOGLOBIN 10.2 G/dl (12.0-16.0)
--- NOTE | 2019-02-12 17:07 | NUR ---
ABG obtained, pt passed weening parameters. Called Dr. Maddox and obtained order to extubate. Pt extubated and placed on nasal canula at 3 L/min. Voice quality is good.
[2019-02-12] MEDS: morphine 4 MG/ML inj SYRINge IV PRN ×2 (17:32→23:09)
[2019-02-12 17:50] LABS: BASOPHILS % (AUTO) 0.4 % (0-1); EOSINOPHILS % (AUTO) 0 % (0-6); HEMATOCRIT 28.6 % (35.0-45.0); HEMOGLOBIN 9.4 g/dl (12.0-16.0); LYMPHOCYTES # (AUTO) 0.3 X10'3 (1.1-4.8); LYMPHOCYTES % (AUTO) 2.9 % (21-51); MEAN CORPUSCULAR HEMOGLOBIN 26.7 PG (27.0-31.0); MEAN CORPUSCULAR VOLUME 80.8 FL (78-98); MONOCYTES # (AUTO) 0.3 X10'3 (0-0.9); MONOCYTES % (AUTO) 2.7 % (2-12); NEUTROPHILS # (AUTO) 10.6 X10'3 (1.8-7.7); RED BLOOD COUNT 3.54 X10'6 (4.20-5.60); RED CELL DISTRIBUTION WIDTH 18.5 % (11.5-14.5); WHITE BLOOD COUNT 11.3 X10'3 (4.5-11.0)
[2019-02-12 18:02] LABS: ALBUMIN 2.8 G/DL (3.4-5.0); ANION GAP 7 (8-16); BLOOD UREA NITROGEN 16 MG/DL (7-18); CHLORIDE 107 MMOL/L (99-107); CREATININE 1.07 MG/DL (0.40-0.90); GLUCOSE 128 MG/DL (70-104); MAGNESIUM 2.6 MG/DL (1.5-2.4); PHOSPHORUS 3.8 MG/DL (2.3-4.5); POTASSIUM 4.7 MMOL/L (3.5-5.1); SODIUM 139 MMOL/L (135-145); TOTAL CARBON DIOXIDE 24.7 MMOL/L (24-32); eGFR 49 ML/MIN
[2019-02-12 18:14] LABS: PLATELET COUNT 132 X10'3 (140-440)
--- NOTE | 2019-02-12 18:24 | NUR ---
Problems reprioritized. Patient report given, questions answered & plan of care reviewed with KALYN Simpson.
--- NOTE | 2019-02-12 18:25 | NUR ---
Patient in room CICU 2009. I have received report from Sonu Moore RN and had the opportunity to ask questions and assume patient care. Pt resting in bed, easily abusible A&Ox4 on 3LNC with spo2 at 98%, insulin gtt infusing per provider orders via central line, all monitoring alarms audible, see IV flowsheet and interventions for further information. Will continue to monitor.
[2019-02-12] MEDS: vancomycin/NS 1 GM ADD-VANTAGE 250 ML IV SCH (20:54)
[2019-02-12] MEDS: docusate sod 100mg capsule PO SCH (20:58)
--- NOTE | 2019-02-12 21:00 | NUR ---
Patient ate a few bites of NCS jello, able to swallow without issue.
--- NOTE | 2019-02-12 21:13 | NUR ---
Gave [place] 1 tab, pain level 9, pt requested only one tab.
--- NOTE | 2019-02-12 22:30 | NUR ---
Arterial line unable to draw and no wave form, removed, pressure held, dressing applied.
[2019-02-13] VITALS (24 sets, daily range): BP systolic 97–132; BP diastolic 6–79
[2019-02-13] MEDS: ceFAZolin 1GM/D5W- ADD-VANTAGE 50 ML IV SCH ×4 (00:13→23:59)
[2019-02-13 03:57] LABS: BASOPHILS % (AUTO) 0.1 % (0-1); EOSINOPHILS % (AUTO) 0 % (0-6); HEMATOCRIT 27.1 % (35.0-45.0); HEMOGLOBIN 8.9 g/dl (12.0-16.0); LYMPHOCYTES # (AUTO) 0.4 X10'3 (1.1-4.8); LYMPHOCYTES % (AUTO) 4.9 % (21-51); MEAN CORPUSCULAR HEMOGLOBIN 26.8 PG (27.0-31.0); MEAN CORPUSCULAR HGB CONC 32.8 g/dL (33.0-36.5); MEAN CORPUSCULAR VOLUME 81.8 FL (78-98); MEAN PLATELET VOLUME 7.5 FL (7.4-10.4); MONOCYTES # (AUTO) 0.5 X10'3 (0-0.9); NEUTROPHILS # (AUTO) 8.1 X10'3 (1.8-7.7); PLATELET COUNT 105 X10'3 (140-440); RED BLOOD COUNT 3.31 X10'6 (4.20-5.60); RED CELL DISTRIBUTION WIDTH 18.3 % (11.5-14.5); WHITE BLOOD COUNT 9.1 X10'3 (4.5-11.0)
[2019-02-13 04:09] LABS: PARTIAL THROMBOPLASTIN TIME 25 SECONDS (22-32)
[2019-02-13 04:12] LABS: ALANINE AMINOTRANSFERASE 16 U/L (12-78); ALBUMIN 3.1 G/DL (3.4-5.0); ALBUMIN/GLOBULIN RATIO 1.1 (1.1-1.5); ALKALINE PHOSPHATASE 56 IU/L (46-116); ANION GAP 4 (8-16); ASPARTATE AMINO TRANSFERASE 70 U/L (10-37); BILIRUBIN,TOTAL 0.4 MG/DL (0.1-1.0); BLOOD UREA NITROGEN 17 MG/DL (7-18); BUN/CREATININE RATIO 17.9 (6.6-38.0); CALCIUM 8.1 MG/DL (8.5-10.1); CHLORIDE 109 MMOL/L (99-107); CREATININE 0.95 MG/DL (0.40-0.90); GLUCOSE 116 MG/DL (70-104); MAGNESIUM 2.7 MG/DL (1.5-2.4); PHOSPHORUS 4.3 MG/DL (2.3-4.5); POTASSIUM 4.7 MMOL/L (3.5-5.1); SODIUM 142 MMOL/L (135-145); TOTAL CARBON DIOXIDE 28.8 MMOL/L (24-32); TOTAL PROTEIN 5.9 G/DL (6.4-8.2); eGFR 57 ML/MIN
[2019-02-13 04:27] LABS: HEMOGLOBIN A1C 5.5 % (4.5-6.2)
[2019-02-13] MEDS: morphine 4 MG/ML inj SYRINge IV PRN (05:19)
--- NOTE | 2019-02-13 05:30 | NUR ---
Pt in chair position for xray in bed.
[2019-02-13 06:16] LABS: ACTIVATED CLOTTING TIME 120 SEC (101-148)
--- NOTE | 2019-02-13 06:30 | NUR ---
Patient in room CICU 2009. I have received report from KALYN Simpson and had the opportunity to ask questions and assume patient care.
--- NOTE | 2019-02-13 06:30 | NUR ---
Patient in room CICU 2009. I have received report from KALYN Simpson and had the opportunity to ask questions and assume patient care.
--- NOTE | 2019-02-13 06:40 | NUR ---
Problems reprioritized. Patient report given, questions answered & plan of care reviewed with Sheron MCCAIN.
--- NOTE | 2019-02-13 06:57 | NUR ---
Problems reprioritized. Patient report given, questions answered & plan of care reviewed with Shruthi MCCAIN and Jinny MCCAIN.
[2019-02-13 07:10] LABS: TOTAL HEMOGLOBIN 6.4 G/dl (12.0-16.0)
[2019-02-13 07:12] LABS: K (ABG) 6.7 mmol/L (3.3-5.1)
[2019-02-13] MEDS: vancomycin/NS 1 GM ADD-VANTAGE 250 ML IV SCH ×2 (07:45→19:48)
[2019-02-13] MEDS: montelukast 10mg tablet PO SCH (07:45)
[2019-02-13] MEDS: mupirocin 2% nasal ointment 1gm UD NS SCH ×2 (07:45→19:47)
[2019-02-13] MEDS: CITALOpram 10mg tablet PO SCH (07:45)
[2019-02-13] MEDS: aspirin 325mg tablet, delayed-release (Ecotrin) PO SCH (07:45)
[2019-02-13] MEDS: gabapentin 300mg capsule PO SCH ×3 (07:46→21:23)
[2019-02-13] MEDS: docusate sod 100mg capsule PO SCH ×2 (07:46→19:47)
[2019-02-13] MEDS: atorvastatin 10mg tablet PO SCH (07:46)
[2019-02-13] MEDS ORDERED: metoprolol tartrate 12.5mg (1/2 tablet) PO SCH (08:00)
[2019-02-13] MEDS: insulin Lispro (HumaLOG) vial - multi-dose SQ SCH ×2 (09:00→13:00)
[2019-02-13 12:46] LABS: ISTAT Hct MIX 31 %PCV (35-48); ISTAT O2 SATURATION MIX VENOUS 59 % (60-80); ISTAT SOURCE MIX
--- NOTE | 2019-02-13 13:00 | NUR ---
Dr. Maddox updated on pt's bradycardic episode, low urine output, high PA pressures, prolonged MA interval, and the need to turn the pacemaker back on. Stated to leave the pacer at 80bpm and he will come by to assess. KAYLN De Jesus aware and in room assessing pt. Pt asymptomatic, eating, drinking, on RA, alert and oriented
[2019-02-13] MEDS: insulin regular, human 100 UNIT in normal saline 100ml IV soln 100 ML IV SCH ×2 (14:50)
[2019-02-13] MEDS: acetaminophen 325mg tablet PO PRN (17:14)
--- NOTE | 2019-02-13 18:10 | NUR ---
Per Dr. Maddox, mila to take PA line out and draw cbc and cmp. Cont to monitor urine output and kidney fx. No other new orders at this time
--- NOTE | 2019-02-13 18:22 | NUR ---
Problems reprioritized. Patient report given, questions answered & plan of care reviewed with KALYN Sepulveda.
--- NOTE | 2019-02-13 18:30 | NUR ---
assumed care from isabel MCCAIN no questions or concerns after assuming care with JAYJAYAR
[2019-02-13 18:32] LABS: ALANINE AMINOTRANSFERASE 17 U/L (12-78); ALBUMIN 3.1 G/DL (3.4-5.0); ALKALINE PHOSPHATASE 69 IU/L (46-116); ANION GAP 8 (8-16); ASPARTATE AMINO TRANSFERASE 67 U/L (10-37); BILIRUBIN,TOTAL 0.4 MG/DL (0.1-1.0); BLOOD UREA NITROGEN 22 MG/DL (7-18); BUN/CREATININE RATIO 22.2 (6.6-38.0); CALCIUM 8.5 MG/DL (8.5-10.1); CHLORIDE 104 MMOL/L (99-107); CREATININE 0.99 MG/DL (0.40-0.90); GLUCOSE 149 MG/DL (70-104); POTASSIUM 4.4 MMOL/L (3.5-5.1); SODIUM 136 MMOL/L (135-145); TOTAL CARBON DIOXIDE 24.5 MMOL/L (24-32); TOTAL PROTEIN 6.2 G/DL (6.4-8.2); eGFR 54 ML/MIN
--- NOTE | 2019-02-13 18:35 | NUR ---
order from Dr. Maddox to DC the PA line, talked with bruno FERRARA, verbalized to start doing vital signs on critical care sheet and we can dc line later
[2019-02-13 18:43] LABS: BASOPHILS # (AUTO) 0.1 X10'3 (0-0.2); BASOPHILS % (AUTO) 0.5 % (0-1); EOSINOPHILS % (AUTO) 0 % (0-6); HEMATOCRIT 28.9 % (35.0-45.0); HEMOGLOBIN 9.1 g/dl (12.0-16.0); LYMPHOCYTES # (AUTO) 0.9 X10'3 (1.1-4.8); LYMPHOCYTES % (AUTO) 5.6 % (21-51); MEAN CORPUSCULAR HEMOGLOBIN 25.9 PG (27.0-31.0); MEAN CORPUSCULAR HGB CONC 31.5 g/dL (33.0-36.5); MEAN CORPUSCULAR VOLUME 82.2 FL (78-98); MEAN PLATELET VOLUME 7.8 FL (7.4-10.4); MONOCYTES % (AUTO) 6.5 % (2-12); NEUTROPHILS # (AUTO) 13.5 X10'3 (1.8-7.7); NEUTROPHILS % (AUTO) 87.4 % (42-75); RED BLOOD COUNT 3.51 X10'6 (4.20-5.60); RED CELL DISTRIBUTION WIDTH 18.8 % (11.5-14.5); WHITE BLOOD COUNT 15.4 X10'3 (4.5-11.0)
--- NOTE | 2019-02-13 18:44 | NUR ---
patients son at bedside conversing with patient, patient appears to be in good spirits.
[2019-02-13 18:59] LABS: PLATELET COUNT 116 X10'3 (140-440)
[2019-02-13] MEDS: lactobacillus rhamnosus 10,000 MMU CELLS/CAPSULE PO SCH (19:47)
--- NOTE | 2019-02-13 20:08 | NUR ---
patient still prefers to be in chair at bedside to watch television rr even un labored no observable s/s of acute stress at this time, spoke with Jaden FERRARA will remove pa line when patient is back in bed
--- NOTE | 2019-02-13 22:31 | NUR ---
PATIENT IN BED EYES CLOSED RR EVEN UN LABORED NO OBSERVABLE S/S OF ACUTE STRESS AT THIS TIME WILL CONTINUE TO EVALUATE
[2019-02-14] VITALS (17 sets, daily range): BP systolic 95–147; BP diastolic 33–65
--- NOTE | 2019-02-14 00:29 | NUR ---
PATIENT IN BED ON SIDE COVERS ON EYES CLOSED RR EVEN UN LABORED NO OBSERVABLE S/S OF ACUTE STRESS AT THIS TIME
--- NOTE | 2019-02-14 02:03 | NUR ---
PATIENT IN BED MOVED FROM SIDE TO BACK WHEN ASKED IF NEEDED ANY HELP PATIENT DECLINED, I STILL WENT IN AND MADE SURE ALL THE CHEST TUBE DRAINS AND SALMERON WAS NON OBSTRUCTED PATIENT IS CURRENTLY BACK TO [place] COVERS ON EYES CLOSED RR EVEN UN LABORED NO OBSERVABLE S/S OF ACUTE STRESS AT THIS TIME
[2019-02-14 02:35] LABS: BASOPHILS % (AUTO) 0 % (0-1); EOSINOPHILS % (AUTO) 0.1 % (0-6); HEMATOCRIT 26.6 % (35.0-45.0); HEMOGLOBIN 8.6 g/dl (12.0-16.0); LYMPHOCYTES % (AUTO) 8.6 % (21-51); MEAN CORPUSCULAR HEMOGLOBIN 26.5 PG (27.0-31.0); MEAN CORPUSCULAR HGB CONC 32.5 g/dL (33.0-36.5); MEAN CORPUSCULAR VOLUME 81.5 FL (78-98); MEAN PLATELET VOLUME 7.6 FL (7.4-10.4); MONOCYTES # (AUTO) 0.9 X10'3 (0-0.9); MONOCYTES % (AUTO) 8.6 % (2-12); NEUTROPHILS # (AUTO) 9.2 X10'3 (1.8-7.7); NEUTROPHILS % (AUTO) 82.7 % (42-75); PLATELET COUNT 120 X10'3 (140-440); RED BLOOD COUNT 3.26 X10'6 (4.20-5.60); RED CELL DISTRIBUTION WIDTH 18.9 % (11.5-14.5); WHITE BLOOD COUNT 11.1 X10'3 (4.5-11.0)
[2019-02-14 02:54] LABS: ALBUMIN 2.7 G/DL (3.4-5.0); ANION GAP 7 (8-16); BLOOD UREA NITROGEN 21 MG/DL (7-18); BUN/CREATININE RATIO 23.6 (6.6-38.0); CALCIUM 8.2 MG/DL (8.5-10.1); CHLORIDE 102 MMOL/L (99-107); CREATININE 0.89 MG/DL (0.40-0.90); GLUCOSE 144 MG/DL (70-104); MAGNESIUM 2.2 MG/DL (1.5-2.4); PHOSPHORUS 3.1 MG/DL (2.3-4.5); POTASSIUM 4.1 MMOL/L (3.5-5.1); SODIUM 134 MMOL/L (135-145); TOTAL CARBON DIOXIDE 24.7 MMOL/L (24-32); eGFR 61 ML/MIN
[2019-02-14] MEDS: potassium Cl 20mEq/100mL bag 100 ML IV PRN ×2 (03:26→04:35)
[2019-02-14 03:30] LABS: PLATELET ESTIMATE DECREASED
[2019-02-14 03:31] LABS: ANISOCYTOSIS 2+; ELLIPTOCYTES FEW
--- NOTE | 2019-02-14 03:52 | NUR ---
PATIENT IN BED SUPINE WITH THE COVERS ON EYES CLOSED RR EVEN UN LABORED NO OBSERVABLE S/S OF ACUTE STRESS AT THIS TIME
--- NOTE | 2019-02-14 04:54 | NUR ---
patient in bed appears to be resting comfortably repositioned patients extremities with pillows covers on eyes closed rr even un labored no observable s/s of acute stress at this time
[2019-02-14] MEDS: acetaminophen 325mg tablet PO PRN ×2 (05:24→21:01)
--- NOTE | 2019-02-14 06:19 | NUR ---
SBAR to Dianna MCCAIN no questions or concerns after assuming care
[2019-02-14] MEDS: CITALOpram 10mg tablet PO SCH (08:23)
[2019-02-14] MEDS: pantoprazole 40mg Tablet.DR PO SCH (08:23)
[2019-02-14] MEDS: docusate sod 100mg capsule PO SCH ×2 (08:23→20:46)
[2019-02-14] MEDS: gabapentin 300mg capsule PO SCH (08:23)
[2019-02-14] MEDS: atorvastatin 10mg tablet PO SCH (08:23)
[2019-02-14] MEDS: montelukast 10mg tablet PO SCH (08:23)
[2019-02-14] MEDS: lactobacillus rhamnosus 10,000 MMU CELLS/CAPSULE PO SCH ×2 (08:23→20:46)
[2019-02-14] MEDS: mupirocin 2% nasal ointment 1gm UD NS SCH (08:24)
[2019-02-14] MEDS: aspirin 325mg tablet, delayed-release (Ecotrin) PO SCH (08:24)
[2019-02-14] MEDS ORDERED: potassium Cl 20 mEq SR tablet PO PRN ×3 (08:25→15:45)
[2019-02-14] MEDS ORDERED: magnesium 4gm in 100ml NS 100 ML IV PRN ×2 (08:25→15:45)
[2019-02-14] MEDS ORDERED: potassium CL 10mEq/100ml bag 100 ML IV PRN ×2 (08:25)
[2019-02-14] MEDS ORDERED: magnesium 2GM in 50ml NS 50 ML IV PRN ×2 (08:25→15:45)
--- NOTE | 2019-02-14 14:30 | NUR ---
report given to KALYN Solis; all questions answered. pt taken via wheelchair up to rm 307 with all belongings. pt ambulated to bed SBA. pt oriented to room and call light.
[2019-02-14] MEDS ORDERED: potassium Cl 20mEq/100mL bag 100 ML IV PRN (15:45)
[2019-02-14] MEDS: magnesium Cl slow-release 64mg tablet PO SCH (20:00)
[2019-02-14] MEDS: potassium Cl 20 mEq SR tablet PO SCH (20:00)
[2019-02-14] MEDS: warfarin 5mg tablet PO SCH (22:23)
--- NOTE | 2019-02-14 22:26 | NUR ---
The patient takes warfarin 5mg on daily bases except on Tue. which she takes only 2.5mg. So the patient got Warfarin 2.5 mg for her scheduled dose.
[2019-02-15 02:00] VITALS: BP 123/63
[2019-02-15 02:02] LABS: ALBUMIN 2.6 G/DL (3.4-5.0); ANION GAP 6 (8-16); BLOOD UREA NITROGEN 21 MG/DL (7-18); BUN/CREATININE RATIO 26.3 (6.6-38.0); CHLORIDE 104 MMOL/L (99-107); GLUCOSE 101 MG/DL (70-104); MAGNESIUM 2.2 MG/DL (1.5-2.4); POTASSIUM 4.6 MMOL/L (3.5-5.1); SODIUM 135 MMOL/L (135-145); TOTAL CARBON DIOXIDE 25.4 MMOL/L (24-32); eGFR 69 ML/MIN
[2019-02-15 04:36] LABS: BASOPHILS % (AUTO) 0.5 % (0-1); EOSINOPHILS # (AUTO) 0.1 X10'3 (0-0.9); EOSINOPHILS % (AUTO) 1.2 % (0-6); HEMATOCRIT 27.5 % (35.0-45.0); HEMOGLOBIN 8.9 g/dl (12.0-16.0); LYMPHOCYTES # (AUTO) 1.2 X10'3 (1.1-4.8); LYMPHOCYTES % (AUTO) 13.5 % (21-51); MEAN CORPUSCULAR HEMOGLOBIN 26.4 PG (27.0-31.0); MEAN CORPUSCULAR HGB CONC 32.3 g/dL (33.0-36.5); MEAN CORPUSCULAR VOLUME 81.5 FL (78-98); MEAN PLATELET VOLUME 7.5 FL (7.4-10.4); MONOCYTES # (AUTO) 0.8 X10'3 (0-0.9); NEUTROPHILS # (AUTO) 6.7 X10'3 (1.8-7.7); NEUTROPHILS % (AUTO) 75.8 % (42-75); PLATELET COUNT 136 X10'3 (140-440); RED BLOOD COUNT 3.37 X10'6 (4.20-5.60); RED CELL DISTRIBUTION WIDTH 18.8 % (11.5-14.5); WHITE BLOOD COUNT 8.8 X10'3 (4.5-11.0)
[2019-02-15 06:00] VITALS: BP 120/50
--- NOTE | 2019-02-15 06:00 | NUR ---
Patient in room MED 307. I have received report from KALYN Cleveland and had the opportunity to ask questions and assume patient care.
--- NOTE | 2019-02-15 06:19 | NUR ---
Gave report to Amy. Answered all the questions.
--- NOTE | 2019-02-15 06:24 | NUR ---
I have reviewed and agree with all interventions, assessments performed and documented by Dwayne.
[2019-02-15] MEDS: K and/or MAG REPLACEMENT MC SCH (07:41)
[2019-02-15] MEDS: pantoprazole 40mg Tablet.DR PO SCH (07:42)
[2019-02-15] MEDS: atorvastatin 10mg tablet PO SCH (07:42)
[2019-02-15] MEDS: CITALOpram 10mg tablet PO SCH (07:42)
[2019-02-15] MEDS: aspirin 325mg tablet, delayed-release (Ecotrin) PO SCH (07:42)
[2019-02-15] MEDS: docusate sod 100mg capsule PO SCH ×2 (07:43→20:00)
[2019-02-15] MEDS: montelukast 10mg tablet PO SCH (07:44)
[2019-02-15] MEDS: magnesium Cl slow-release 64mg tablet PO PRN ×2 (07:44→17:34)
[2019-02-15] MEDS: magnesium Cl slow-release 64mg tablet PO SCH ×2 (07:44→20:00)
[2019-02-15] MEDS: potassium Cl 20 mEq SR tablet PO SCH ×2 (07:45→20:00)
[2019-02-15] MEDS: lactobacillus rhamnosus 10,000 MMU CELLS/CAPSULE PO SCH ×2 (07:45→20:14)
[2019-02-15 11:00] VITALS: BP 137/57
[2019-02-15 15:00] VITALS: BP 132/57
--- NOTE | 2019-02-15 17:12 | NUR ---
reassessment: Pt PO 50% avg meals slight increase from 25-50% previous post-op. Pt seen by RD for written/verbal high protein ed w/ RD contact information provided. Pt agrees to tuna or egg salad sandwich at dinner tonight on white bread; dietary notified. Pt had large BM today following prior 5d constipation. Will continue to monitor for additional protein needs now that constipation is resolving. Rec: 1. advance diet per MD to regular/lactose free 2. monitor for additional protein preferences 3. routine bowel care 4. MVI for wound healing per MD 5. wt per rx Addendum: 02/15/19 at [address] Amended: Links added.
[2019-02-15 18:00] VITALS: BP 133/53
--- NOTE | 2019-02-15 18:00 | NUR ---
Patient in room MED 307. I have received report from Ayana MCCAIN and had the opportunity to ask questions and assume patient care.
--- NOTE | 2019-02-15 18:15 | NUR ---
Problems reprioritized. Patient report given, questions answered & plan of care reviewed with KALYN Cleveland.
[2019-02-15] MEDS: warfarin 5mg tablet PO SCH (20:17)
[2019-02-15 22:00] VITALS: BP 123/56
[2019-02-16 02:00] VITALS: BP 129/58
[2019-02-16 05:25] LABS: BASOPHILS % (AUTO) 0.2 % (0-1); EOSINOPHILS # (AUTO) 0.1 X10'3 (0-0.9); EOSINOPHILS % (AUTO) 1.3 % (0-6); HEMATOCRIT 24.7 % (35.0-45.0); HEMOGLOBIN 8.2 g/dl (12.0-16.0); LYMPHOCYTES # (AUTO) 0.8 X10'3 (1.1-4.8); LYMPHOCYTES % (AUTO) 11.1 % (21-51); MEAN CORPUSCULAR HEMOGLOBIN 26.9 PG (27.0-31.0); MEAN CORPUSCULAR HGB CONC 33.4 g/dL (33.0-36.5); MEAN CORPUSCULAR VOLUME 80.7 FL (78-98); MEAN PLATELET VOLUME 7.6 FL (7.4-10.4); MONOCYTES # (AUTO) 0.6 X10'3 (0-0.9); MONOCYTES % (AUTO) 8.1 % (2-12); NEUTROPHILS # (AUTO) 5.9 X10'3 (1.8-7.7); NEUTROPHILS % (AUTO) 79.3 % (42-75); PLATELET COUNT 154 X10'3 (140-440); RED BLOOD COUNT 3.06 X10'6 (4.20-5.60); RED CELL DISTRIBUTION WIDTH 19.1 % (11.5-14.5); WHITE BLOOD COUNT 7.4 X10'3 (4.5-11.0)
[2019-02-16 05:39] LABS: ALBUMIN 2.5 G/DL (3.4-5.0); ANION GAP 9 (8-16); BLOOD UREA NITROGEN 16 MG/DL (7-18); BUN/CREATININE RATIO 22.9 (6.6-38.0); CALCIUM 8.2 MG/DL (8.5-10.1); CHLORIDE 103 MMOL/L (99-107); GLUCOSE 98 MG/DL (70-104); POTASSIUM 4.5 MMOL/L (3.5-5.1); SODIUM 137 MMOL/L (135-145); TOTAL CARBON DIOXIDE 24.8 MMOL/L (24-32); eGFR 81 ML/MIN
[2019-02-16 06:00] VITALS: BP 133/58
--- NOTE | 2019-02-16 06:00 | NUR ---
Patient in room MED 307. I have received report from KALYN Cleveland and had the opportunity to ask questions and assume patient care.
--- NOTE | 2019-02-16 06:23 | NUR ---
I have reviewed and agree with all interventions, assessments performed and documented by Maddy
--- NOTE | 2019-02-16 06:26 | NUR ---
gave report to Carlos. Answered all the questions.
[2019-02-16 07:30] LABS: PLATELET ESTIMATE NORMAL; POIKILOCYTOSIS FEW
[2019-02-16 07:31] LABS: ANISOCYTOSIS 2+; MICROCYTOSIS 1+
[2019-02-16] MEDS: potassium Cl 20 mEq SR tablet PO SCH (08:00)
[2019-02-16] MEDS: docusate sod 100mg capsule PO SCH (08:10)
[2019-02-16] MEDS: montelukast 10mg tablet PO SCH (08:10)
[2019-02-16] MEDS: aspirin 325mg tablet, delayed-release (Ecotrin) PO SCH (08:11)
[2019-02-16] MEDS: atorvastatin 10mg tablet PO SCH (08:11)
[2019-02-16] MEDS: pantoprazole 40mg Tablet.DR PO SCH (08:11)
[2019-02-16] MEDS: lactobacillus rhamnosus 10,000 MMU CELLS/CAPSULE PO SCH (08:11)
[2019-02-16] MEDS: CITALOpram 10mg tablet PO SCH (08:11)
[2019-02-16] MEDS: magnesium Cl slow-release 64mg tablet PO SCH (08:11)
[2019-02-16] MEDS: magnesium Cl slow-release 64mg tablet PO PRN ×2 (08:11→15:18)
[2019-02-16] MEDS: acetaminophen 325mg tablet PO PRN (08:12)
[2019-02-16] MEDS: K and/or MAG REPLACEMENT MC SCH (08:12)
[2019-02-16 11:00] VITALS: BP 118/61
--- NOTE | 2019-02-16 12:07 | NUR ---
Problems reprioritized. Patient report given, questions answered & plan of care reviewed with MAREN DEGROOT AT [facility]. Addendum: 02/16/19 at 1212 by Zeina Alegre RN Amended: Links added.
[2019-02-16 15:00] VITALS: BP 134/89
--- NOTE | 2019-02-16 15:45 | NUR ---
Patient stable for transfer per MD orders. All patient questions answered. PIV discontinued, cannula intact, clean, dry dressing in place. Telemetry discontinued. All personal belongings collected and sent with patient, patient to pickle sorter item from safe through admitting. Avis cargo wheeled patient out of facility at 1545.
== END 2019-02-16 15:40 | DRG 216 ==
LOC: ER 09:56 → ED HOLD 14:03 → SUR 3N 17:21 → MED 3N 02-11 13:30 → CICU 2S 02-12 11:49 → MED 3N 02-14 14:44
PROVIDERS: ADMIT Family Medicine; ATTEND Thoracic Surgery (Cardiothoracic Vascular Surgery)
PROC: 30233N1 Transfusion of Nonautologous Red Blood Cells into Peripheral Vein, Percutaneous Approach (ICD-10-PCS; 2019-02-09)
PROC: 4A023N8 Measurement of Cardiac Sampling and Pressure, Bilateral, Percutaneous Approach (ICD-10-PCS; principal; 2019-02-10)
PROC: B2111ZZ Fluoroscopy of Multiple Coronary Arteries using Low Osmolar Contrast (ICD-10-PCS; 2019-02-10)
PROC: B2151ZZ Fluoroscopy of Left Heart using Low Osmolar Contrast (ICD-10-PCS; 2019-02-10)
PROC: 0PH004Z Insertion of Internal Fixation Device into Sternum, Open Approach (ICD-10-PCS; 2019-02-12)
PROC: 02RG08Z Replacement of Mitral Valve with Zooplastic Tissue, Open Approach (ICD-10-PCS; 2019-02-12)
PROC: B24BZZ4 Ultrasonography of Heart with Aorta, Transesophageal (ICD-10-PCS; 2019-02-12)
PROC: 30233N1 Transfusion of Nonautologous Red Blood Cells into Peripheral Vein, Percutaneous Approach (ICD-10-PCS; 2019-02-12)
PROC: 03HY32Z Insertion of Monitoring Device into Upper Artery, Percutaneous Approach (ICD-10-PCS; 2019-02-12)
PROC: 4A133B1 Monitoring of Arterial Pressure, Peripheral, Percutaneous Approach (ICD-10-PCS; 2019-02-12)
PROC: 4A133J1 Monitoring of Arterial Pulse, Peripheral, Percutaneous Approach (ICD-10-PCS; 2019-02-12)
PROC: 02HV33Z Insertion of Infusion Device into Superior Vena Cava, Percutaneous Approach (ICD-10-PCS; 2019-02-12)
PROC: B548ZZA Ultrasonography of Superior Vena Cava, Guidance (ICD-10-PCS; 2019-02-12)
DX: T82.857A Stenosis of other cardiac prosthetic devices, implants and grafts, initial encounter (principal); I50.33 Acute on chronic diastolic (congestive) heart failure; J96.01 Acute respiratory failure with hypoxia; S22.20XA Unspecified fracture of sternum, initial encounter for closed fracture; D68.61 Antiphospholipid syndrome; D68.9 Coagulation defect, unspecified; I34.2 Nonrheumatic mitral (valve) stenosis; D50.9 Iron deficiency anemia, unspecified; E11.9 Type 2 diabetes mellitus without complications; E66.9 Obesity, unspecified; I11.0 Hypertensive heart disease with heart failure; I49.3 Ventricular premature depolarization; Y83.1 Surgical operation with implant of artificial internal device as the cause of abnormal reaction of the patient, or of later complication, without mention of misadventure at the time of the procedure; Z79.01 Long term (current) use of anticoagulants; Z79.52 Long term (current) use of systemic steroids; Z80.8 Family history of malignant neoplasm of other organs or systems; Z95.2 Presence of prosthetic heart valve; Z82.0 Family history of epilepsy and other diseases of the nervous system; Z82.49 Family history of ischemic heart disease and other diseases of the circulatory system; Z86.2 Personal history of diseases of the blood and blood-forming organs and certain disorders involving the immune mechanism; Z87.891 Personal history of nicotine dependence; Z95.828 Presence of other vascular implants and grafts; Z68.34 Body mass index [BMI] 34.0-34.9, adult; Z91.018 Allergy to other foods; Z79.899 Other long term (current) drug therapy; Z90.49 Acquired absence of other specified parts of digestive tract; Y92.89 Other specified places as the place of occurrence of the external cause
CPT/HCPCS: 0232T; 93306; 93312; 93325; 93460; 96374; 99285; 36415; 36600; 71045; 71046; 71275; 80048; 80053; 80061; 82330; 82435; 82803; 82947; 82948; 83036; 83605; 83735; 83880; 84100; 84132; 84145; 84295; 84484; 85014; 85018; 85025; 85347; 85379; 85384; 85610; 85730; 86885; 86900; 86901; 86920; 87040; 87070; 87081; 88300; 93005; 93880; 94002; 94667; 94668; 94760; 97110; 97116; 97161; 97530; 99152; 99153; A4618; A4620; A5120; A6258; A6402; A6449; A7000; A7048; C1713; C1751; C1769; C1894; C9113; G0378; J0690; J0696; J1100; J1644; J1650; J1815; J1940; J2001; J2060; J2150; J2250; J2270; J2370; J2795; J2920; J2930; J3010; J3370; J3430; J3475; J3480; J3490; J7030; J7040; J7050; J7120; P9016; P9045; P9047; Q9967

== ENCOUNTER 2022-04-30 06:45 | Day surgery (SDC) | payer MEDICARE ==
[2022-04-30] VITALS (10 sets, daily range): BP systolic 110–149; BP diastolic 61–94
[~2022-04-30] VITALS: Ht 160 cm; Wt 61.6 kg
[~2022-04-30 06:45] MED LIST changes: +ACYC-126 PO; -ACYC-202 PO; -ALBU8.5H8 INH; +AMLO5TAB16 PO; -BENZ-16 PO; +BUME1TAB8 PO; +CITA10TA93 PO; -COU5T PO; -FURO-150 PO; -IRBE150T51 PO; -LACT1CAP26 PO; -LEVO500T89 PO; +OLME20TA74 PO; -OMEP20CA11 PO; +OMEP20CA15 PO; +WARF-55 PO
[2022-04-30] MEDS ORDERED: fentaNYL/PF 50MCG/1 ML 2ML syringe IV ONE (07:10)
[2022-04-30] MEDS ORDERED: MIDAZolam 1mg/ml 10ml vial IV ONE (07:10)
[2022-04-30] MEDS ORDERED: normal saline 1000ml 1,000 ML IV SCH (07:10)
[2022-04-30] MEDS ORDERED: IRBE150T24 PO (07:23)
[2022-04-30 08:50] LABS: BASOPHILS % (AUTO) 0.5 % (0-1); EOSINOPHILS # (AUTO) 0.1 X10'3 (0-0.9); HEMATOCRIT 32.5 % (35.0-45.0); HEMOGLOBIN 10.5 g/dl (12.0-16.0); LYMPHOCYTES # (AUTO) 0.9 X10'3 (1.1-4.8); LYMPHOCYTES % (AUTO) 16.9 % (21-51); MEAN CORPUSCULAR HEMOGLOBIN 28.4 PG (27.0-31.0); MEAN CORPUSCULAR HGB CONC 32.3 g/dL (33.0-36.5); MEAN CORPUSCULAR VOLUME 87.9 FL (78-98); MEAN PLATELET VOLUME 7.2 FL (7.4-10.4); MONOCYTES # (AUTO) 0.4 X10'3 (0-0.9); MONOCYTES % (AUTO) 7.3 % (2-12); NEUTROPHILS # (AUTO) 4.1 X10'3 (1.8-7.7); NEUTROPHILS % (AUTO) 74.3 % (42-75); PLATELET COUNT 179 X10'3 (140-440); RED BLOOD COUNT 3.69 X10'6 (4.20-5.60); RED CELL DISTRIBUTION WIDTH 16.5 % (11.5-14.5); WHITE BLOOD COUNT 5.6 X10'3 (4.5-11.0)
[2022-04-30 09:22] LABS: ALBUMIN 2.9 G/DL (3.4-5.0); ANION GAP 8 (8-16); BLOOD UREA NITROGEN 18 MG/DL (7-18); BUN/CREATININE RATIO 18.6 (6.6-38.0); CHLORIDE 101 MMOL/L (99-107); CREATININE 0.97 MG/DL (0.40-0.90); GLUCOSE 100 MG/DL (70-104); MAGNESIUM 2.1 MG/DL (1.5-2.4); POTASSIUM 4.4 MMOL/L (3.5-5.1); SODIUM 136 MMOL/L (135-145); TOTAL CARBON DIOXIDE 26.8 MMOL/L (24-32); eGFR 55 ML/MIN
[2022-04-30] MEDS ORDERED: flecainide 50mg tablet PO ONE (09:35)
== END 2022-04-30 10:40 | disposition home or self-care (01) ==
LOC: SSTAY O 06:45
PROVIDERS: ATTEND Internal Medicine Cardiovascular Disease
DX: I48.4 Atypical atrial flutter (principal); I42.9 Cardiomyopathy, unspecified; Z95.3 Presence of xenogenic heart valve; I36.8 Other nonrheumatic tricuspid valve disorders; I10 Essential (primary) hypertension; I48.91 Unspecified atrial fibrillation; Z98.41 Cataract extraction status, right eye; Z98.42 Cataract extraction status, left eye; Z98.890 Other specified postprocedural states; Z79.899 Other long term (current) drug therapy
CPT/HCPCS: 36415; 80048; 83735; 85025; 85610; 92960; 93005; J2250; J3010; J7030; A4620

== ENCOUNTER 2023-04-15 08:25 | Day surgery (SDC) | payer MEDICARE ==
[~2023-04-15] VITALS: Ht 162.6 cm; Wt 61.7 kg
[~2023-04-15 08:25] MED LIST changes: -AMLO5TAB16 PO; -BUME1TAB8 PO; -CITA10TA93 PO; +IRBE150T34 PO; -OLME20TA74 PO
[2023-04-15 09:00] VITALS: BP 150/58; PULSE 51; RESP 16; TEMP 98.3; O2SAT 94
[2023-04-15] MEDS ORDERED: midazolam 1 mg/ML 2ml injection ONE ×4 (09:05→11:42)
[2023-04-15] MEDS ORDERED: vancomycin 1,000mg inj ONE (09:05)
[2023-04-15] MEDS ORDERED: LIDOcaine 1% W/epiNEPHrine 1:100,000 20ml vial ONE ×2 (09:05→11:12)
[2023-04-15] MEDS ORDERED: fentaNYL/PF 50MCG/1 ML 2ML syringe ONE ×2 (09:05→11:25)
[2023-04-15] MEDS ORDERED: MULT-1141 PO (09:11)
[2023-04-15] MEDS ORDERED: POTA-207 PO (09:11)
[2023-04-15] MEDS ORDERED: CARV6.2553 PO (09:11)
[2023-04-15] MEDS ORDERED: IRBE300T26 PO (09:11)
[2023-04-15] MEDS ORDERED: AMIO200T72 PO (09:11)
[2023-04-15] MEDS ORDERED: PROP10TA10 PO (09:11)
[2023-04-15] MEDS ORDERED: FURO40TA4 PO (09:11)
[2023-04-15] MEDS ORDERED: normal saline 1000ml 1,000 ML IV SCH (09:15)
[2023-04-15] MEDS ORDERED: vancomycin/NS 1 GM ADD-VANTAGE 250 ML IV ONE (09:15)
[2023-04-15] MEDS ORDERED: cefazolin 2gm/D5W 100mL 100 ML IV ONE (09:15)
[2023-04-15 10:03] LABS: BASOPHILS % (AUTO) 1.1 % (0-1); EOSINOPHILS # (AUTO) 0.1 X10'3 (0-0.9); EOSINOPHILS % (AUTO) 2.8 % (0-6); HEMATOCRIT 34.3 % (35.0-45.0); HEMOGLOBIN 10.9 g/dl (12.0-16.0); LYMPHOCYTES # (AUTO) 1.2 X10'3 (1.1-4.8); LYMPHOCYTES % (AUTO) 28.7 % (21-51); MEAN CORPUSCULAR HEMOGLOBIN 25.4 PG (27.0-31.0); MEAN CORPUSCULAR HGB CONC 31.7 g/dL (33.0-36.5); MEAN CORPUSCULAR VOLUME 79.9 FL (78-98); MEAN PLATELET VOLUME 7.3 FL (7.4-10.4); MONOCYTES # (AUTO) 0.4 X10'3 (0-0.9); NEUTROPHILS # (AUTO) 2.5 X10'3 (1.8-7.7); NEUTROPHILS % (AUTO) 58.4 % (42-75); PLATELET COUNT 146 X10'3 (140-440); RED BLOOD COUNT 4.29 X10'6 (4.20-5.60); RED CELL DISTRIBUTION WIDTH 19.4 % (11.5-14.5); WHITE BLOOD COUNT 4.2 X10'3 (4.5-11.0)
[2023-04-15 10:10] LABS: APTT 30 SECONDS (22-32); INR 1.5 INR; PROTHROMBIN TIME 16.1 SECONDS (9.0-12.0)
[2023-04-15 10:11] LABS: ALANINE AMINOTRANSFERASE 51 U/L (12-78); ALBUMIN 3.4 G/DL (3.4-5.0); ALBUMIN/GLOBULIN RATIO 0.6 (1.1-1.5); ALKALINE PHOSPHATASE 190 IU/L (46-116); ANION GAP 9 (8-16); ASPARTATE AMINO TRANSFERASE 69 U/L (10-37); BILIRUBIN,TOTAL 0.7 MG/DL (0.1-1.0); BLOOD UREA NITROGEN 25 MG/DL (7-18); BUN/CREATININE RATIO 23.8 (10.0-20.0); CALCIUM 9.4 MG/DL (8.5-10.1); CHLORIDE 100 MMOL/L (99-107); CREATININE 1.05 MG/DL (0.40-0.90); POTASSIUM 4.3 MMOL/L (3.5-5.1); SODIUM 137 MMOL/L (135-145); TOTAL CARBON DIOXIDE 28.1 MMOL/L (24-32); TOTAL PROTEIN 8.9 G/DL (6.4-8.2); eCRCL 34 ML/MIN; eGFR 50 ML/MIN
[2023-04-15 10:14] LABS: GLUCOSE 85 MG/DL (70-104)
[2023-04-15] MEDS ORDERED: iohexol 350 MG/ML 50ML vial IV ONE ×3 (10:15→11:33)
[2023-04-15 10:29] LABS: PLATELET ESTIMATE NORMAL
[2023-04-15 10:31] LABS: ANISOCYTOSIS 2+; ELLIPTOCYTES FEW; HYPOCHROMASIA 1+; MICROCYTOSIS 1+; TEAR DROP CELLS FEW
[2023-04-15] MEDS ORDERED: ceFAZolin 1000mg inj ONE (10:54)
[2023-04-15] MEDS ORDERED: proCHLORperazine 10 MG/2 ml inj ONE (11:06)
[2023-04-15 13:02] VITALS: BP 132/74; PULSE 70; RESP 16; O2SAT 100
[2023-04-15 13:17] VITALS: BP 136/64; PULSE 60; RESP 15; O2SAT 95
[2023-04-15 13:32] VITALS: BP 138/67; PULSE 60; RESP 12; O2SAT 94
[2023-04-15 13:47] VITALS: BP 112/49; PULSE 65; RESP 14; O2SAT 94
[2023-04-15 14:17] VITALS: BP 135/71; PULSE 60; RESP 18; O2SAT 93
== END 2023-04-15 14:40 | disposition home or self-care (01) ==
LOC: CATH LAB 08:25
PROVIDERS: ATTEND Internal Medicine Cardiovascular Disease
DX: I49.5 Sick sinus syndrome (principal); I42.9 Cardiomyopathy, unspecified; I44.7 Left bundle-branch block, unspecified; I48.91 Unspecified atrial fibrillation; I10 Essential (primary) hypertension; I36.1 Nonrheumatic tricuspid (valve) insufficiency; F32.A Depression, unspecified; G25.0 Essential tremor; G20.A1 Parkinson's disease without dyskinesia, without mention of fluctuations; I48.4 Atypical atrial flutter; Z95.2 Presence of prosthetic heart valve; Z98.890 Other specified postprocedural states; Z98.41 Cataract extraction status, right eye; Z98.42 Cataract extraction status, left eye; Z90.49 Acquired absence of other specified parts of digestive tract; Z87.891 Personal history of nicotine dependence; Z79.01 Long term (current) use of anticoagulants; Z79.899 Other long term (current) drug therapy; Z88.8 Allergy status to other drugs, medicaments and biological substances; Z80.8 Family history of malignant neoplasm of other organs or systems
CPT/HCPCS: 33208; 33225; 36415; 71045; 80053; 85025; 85610; 85730; 93005; 99152; 99153; C1898; C1900; C2621; J0690; J0780; J2250; J3010; J3370; J3490; J7030; Q9967; 33249; 85008; 92953; 96360; A4565; A4615; C1769